=== PATIENT | male | born 1930 | race Caucasian/White ===

== ENCOUNTER 2016-07-23 15:12 | Emergency (ER) | payer MEDICARE, OTHER ==
[2016-07-23] MEDS ORDERED: Adacel (T-DAP) 0.5 ML VIAL ONE (15:26)
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
== END 2016-07-23 16:30 | disposition home or self-care (01) ==
LOC: BURERS 15:12
DX: S01.01XA Laceration without foreign body of scalp, initial encounter (principal); I10 Essential (primary) hypertension; W01.118A Fall on same level from slipping, tripping and stumbling with subsequent striking against other sharp object, initial encounter; Y92.89 Other specified places as the place of occurrence of the external cause
CPT/HCPCS: 12032; 70450; 90471; 90715; 93005

== ENCOUNTER 2016-07-30 10:14 | Emergency (ER) | payer MEDICARE | END 2016-07-30 10:55 | disposition home or self-care (01) | LOC: BURERS 10:14 | DX: S01.01XD Laceration without foreign body of scalp, subsequent encounter (principal); I10 Essential (primary) hypertension ==

== ENCOUNTER 2018-08-09 15:08 | Emergency (ER) | payer MEDICARE ==
[2018-08-09] MEDS ORDERED: Adacel (T-DAP) 0.5 ML SYRINGE ONE (16:07)
--- NOTE | 2018-08-09 20:00 | RAD ---
PORTABLE CHEST: Date: 08-09-18 FINDINGS: An AP portable film at 1530 shows mild cardiomegaly but no vascular congestion, pulmonary edema or pl eural effusion. The lungs are clear. The mediastinum is unremarkable. The right AC joint is slightly wider than the left but not offset. Perhaps there has been old trauma here. IMPRESSION: Mild cardiomegaly. POS: HOME
== END 2018-08-09 16:27 | disposition home or self-care (01) ==
LOC: BURERS 15:08
DX: T21.11XA Burn of first degree of chest wall, initial encounter (principal); T24.122A Burn of first degree of left knee, initial encounter; I10 Essential (primary) hypertension; Z23 Encounter for immunization; X11.8XXA Contact with other hot tap-water, initial encounter
CPT/HCPCS: 71045; 90471; 90715